=== PATIENT | female | born 1950 | race Caucasian/White ===

== ENCOUNTER 2020-09-18 06:57 | Day surgery (SDC) | payer BC, OTHER ==
[2020-09-13 14:28] VITALS: BMI 34.2
[2020-09-18 07:24] VITALS: TEMP 98.2
[2020-09-18] MEDS ORDERED: LIDOCAINE HCL/PF 2% SDV 5ML VIAL ONE (09:00)
[2020-09-18] MEDS ORDERED: PROPOFOL 20 ML ONE ×3 (09:00)
[2020-09-18 10:17] VITALS: BP 110/62; PULSE 66
== END 2020-09-18 10:18 | disposition home or self-care (01) ==
LOC: FASU-ENDO 06:57
PROVIDERS: ATTEND Internal Medicine Gastroenterology
PROC: 0DB98ZX Excision of Duodenum, Via Natural or Artificial Opening Endoscopic, Diagnostic (ICD-10-PCS; 2020-09-18)
PROC: 0DB78ZX Excision of Stomach, Pylorus, Via Natural or Artificial Opening Endoscopic, Diagnostic (ICD-10-PCS; 2020-09-18)
PROC: 0D738ZZ Dilation of Lower Esophagus, Via Natural or Artificial Opening Endoscopic (ICD-10-PCS; 2020-09-18)
PROC: 0DJD8ZZ Inspection of Lower Intestinal Tract, Via Natural or Artificial Opening Endoscopic (ICD-10-PCS; principal; 2020-09-18 09:18)
DX: Z12.11 Encounter for screening for malignant neoplasm of colon (principal); Z86.010 Personal history of colon polyps; K29.70 Gastritis, unspecified, without bleeding; R13.10 Dysphagia, unspecified; R12 Heartburn
CPT/HCPCS: 43239; 43450; G0105; 88305-TC; 88342-TC